=== PATIENT | female | born 1965 | race Caucasian/White ===

== ENCOUNTER → 2016-12-03 | Day surgery (SDC) | payer BC ==
[2016-11-24 10:05] VITALS: Ht 151.1 cm; Wt 77.3 kg
--- NOTE | 2016-12-02 09:12 | History and Physical: Surg Cnt ---
History & Physical Date Dec 02, 2016. Chief Complaint hoarseness History of Present Illness The patient is a 51 year old female with complaints of persistent hoarseness Additional History Hepatic Disease: No Endocrine Disorder: No Kidney Disease: No Hypertension: No Heart Disease: No Bleeding Tendencies: No Infectious Diseases: No Allergies Coded Allergies: Penicillins (Verified Allergy, Unknown, HIVES, 11/24/16) Morphine (Verified Adverse Reaction, Mild, N&V, 11/24/16) Home Medications Scheduled Esomeprazole Magnesium (Nexium), 20 MG PO QAM Linaclotide (Linzess), 1 CAP PO QAM Lorazepam (Ativan), 0.5 MG PO HS Mometasone Furoate-Formoterol (Dulera 100/5 Mcg), 1 AER INH BID Montelukast Sodium (Singulair), 10 MG PO HS Omeprazole (Prilosec), 20 MG PO HS Oxycodone Hcl (Oxycontin), 20 MG PO Q12 Scheduled PRN Albuterol Sulf (Proventil 0.083% 2.5MG/3ML), 2.5 MG INH QID PRN for Shortness of Breath Albuterol Sulfate (Proair Hfa), 2 PUFFS INH Q4H PRN for Wheezing Physical Examination Skin: warm/dry, no rash Eyes: normal inspection, EOMI, sclerae normal ENT: normal ENT inspection, pharynx normal, + pertinent finding (vocal cord polyps, leukoplakia) Head: normocephalic, atraumatic Neck: supple, no adenopathy, trachea midline Respiratory/Chest: lungs clear, normal breath sounds, no respiratory distress Cardiovascular: regular rate, rhythm, no edema, no murmur Abdomen / GI: normal bowel sounds, non tender Back: normal inspection Extremities: normal inspection, normal range of motion Neurologic/Psych: no motor/sensory deficits, alert, normal reflexes, oriented x 3 Diagnosis vocal cord polyps Plan of Treatment direct laryngoscopy, excision vocal cord polyps
[~2016-12-03] VITALS: Ht 151.1 cm; Wt 77.3 kg
[~2016-12-03] MED LIST: ALBINS/ INH; ALBU1AER9 INH; ALBUTEROL 0.083% NEBU SOLN 3 ML VIAL INH PRN; ALBUTEROL HFA INHALER 8.5 GM INH ONE; ATROPINE SULFATE 0.1 MG/ML 5ML SYR IV PRN; DEXAMETHASONE SOD INJ 4 MG/ML VIAL ONE; ESOM20CA PO; EpHEDrine SULFATE INJ 50 MG/ML AMP IV PRN; EpINEphrine INJ 1MG/ML AMP 1 MG/ML AMP ONE; FENTANYL CITRATE INJ 50 MCG/1 ML 2 ML VIAL IV PRN; FENTANYL CITRATE INJ 50 MCG/1 ML 2 ML VIAL ONE; FLUMAZENIL 0.1 MG/1 ML 10 ML VIAL IV PRN; GLYCOPYRROLATE INJ 0.2 MG/ML VIAL ONE; IBUPROFEN 600 MG TAB PO PRN; LABETALOL HCL IV 5 MG/ML 20ML IV PRN; LACTATED RINGER'S 1000ML 1,000 ML IV SCH; LIDOCAINE 2% 20 MG/ML 5ML SYR ONE; LINA1CAP2 PO; LORA-741 PO; MIDAZOLAM HCL 1 MG/ML 2ML VIAL ONE; MOME100A INH; MONT1TAB3 PO; NALOXONE HCL 0.4 MG/1 ML VIAL/CARP IV PRN; NEOSTIGMINE METHYLSULFATE 5 MG/5 ML SYR ONE; ONDANSETRON INJ 2 MG/ML 2 ML VIAL IV PRN; ONDANSETRON INJ 2 MG/ML 2 ML VIAL ONE; OXYC20TA50 PO; OXYCODONE/ACETAMINOPHEN 5-325 TAB PO PRN; PRLSR20 PO; PROMETHAZINE HCL INJ 12.5 MG in SODIUM CHLORIDE 0.9% 50ML 50 ML IV PRN; PROPOFOL IV EMULSION 10 MG/ML 20 ML VIAL IV ONE; SODIUM CHLORIDE 0.9% 1000ML 1,000 ML IV SCH
--- NOTE | 2016-12-03 07:13 | History & Physical Bridge Note ---
H&P Re-Evaluation Bridge Note: I have examined the patient, reviewed the History & Physical and in the interval since the performance of the History & Physical I have noted the following changes of clinical significance: No changes noted
--- NOTE | 2016-12-03 07:16 | Discharge Instructions-SurgCtr ---
Discharge Instructions Visit Reason for Visit: Vocal Cord Polyp Discharge Discharge Diagnosis / Problem: same Discharge Goals Goal(s): Diagnostic testing Activity Recommendations Activity Limitations: resume your previous activity no smoking, rest voice Anesthesia . Post Anesthesia Instructions: If you have had General Anesthesia or IV Sedation: * Do not drive today. * Resume driving when surgeon permits. * Do not make important decisions or sign legal documents today. * Call surgeon for: 1. Temperature elevations greater than 101 degrees F. 2. Uncontrollable pain. 3. Excessive bleeding. 4. Persistent nausea and vomiting. 5. Medication intolerance (nausea, vomiting or rash). * For nausea and vomiting use only clear liquids such as: tea, soda, bouillon until nausea subsides, then gradually increase diet as tolerated. * If you have any concerns or questions, call your surgeon's office. If physician is unavailable and it is an emergency, call 911 or go to the nearest emergency room. . Diet Recommendations Home Diet: no limitations Pending Studies Studies pending at discharge: no Medical Emergencies . Who to Call and When: Medical Emergencies: If at any time you feel your situation is an emergency, please call 911 immediately. . Non-Emergent Contact Non-Emergency issues call your: Primary Care Provider . . "Provider Documentation" section prepared by Josie Wick. [facility] Monitoring Program Search Results: no issues identified
[2016-12-03 09:08] VITALS: BP 105/68; PULSE 67; TEMP 37.2; O2SAT 92
--- NOTE | 2016-12-03 09:20 | Anesthesia Progress Nt - [facility] ---
Anesthesia Post Op Note Date & Time Dec 03, 2016 at 09:20 Vital Signs Pain Intensity: 0 Vital Signs Past 12 Hours Date Time Temp Pulse Resp B/P Pulse Ox O2 Delivery O2 Flow Rate FiO2 12/03/16 09:08 37.2 67 105/68 92 Room Air 12/03/16 08:44 36.4 106/87 12/03/16 08:43 66 24 95 12/03/16 08:43 67 21 96 12/03/16 08:39 117/55 12/03/16 08:33 68 15 117/71 98 12/03/16 08:33 68 15 12/03/16 08:28 90 16 100 12/03/16 08:28 83 16 98 12/03/16 08:23 125/68 12/03/16 08:18 67 14 12/03/16 08:18 68 14 97 12/03/16 08:13 75 16 96 12/03/16 08:13 79 16 98 12/03/16 08:08 118/81 12/03/16 08:03 68 19 97 12/03/16 08:03 70 19 12/03/16 08:02 87/68 12/03/16 07:58 76 18 12/03/16 07:58 76 18 91 12/03/16 07:53 36.3 75 16 133/91 99 Humidified Oxygen 6 Mask 12/03/16 06:36 36.7 80 20 140/99 95 Room Air Notes Mental Status: alert / awake / arousable, participated in evaluation Pt Amnestic to Procedure: Yes Nausea / Vomiting: adequately controlled Pain: adequately controlled Airway Patency, RR, SpO2: stable & adequate BP & HR: stable & adequate Hydration State: stable & adequate Anesthetic Complications: no major complications apparent
--- NOTE | 2016-12-03 11:42 | OPERATIVE REPORT ---
DATE OF OPERATION: 12/03/2016 PREOPERATIVE DIAGNOSIS: Bilateral vocal cord polyps with leukoplakia. POSTOPERATIVE DIAGNOSIS: Same. PROCEDURE: Direct laryngoscopy with microscopic excision of bilateral vocal cord polyps. SURGEON: Dr. Wick. ANESTHESIA: General endotracheal. COMPLICATIONS: None. BLOOD LOSS: 2 mL HISTORY OF PRESENT ILLNESS: A 51-year-old lady with persistent hoarseness. 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 Above procedure felt to be indicated. DESCRIPTION OF PROCEDURE: The patient brought to operating room, placed in supine position. General endotracheal anesthesia was induced, prepped, draped in usual sterile manner. The Dedo laryngoscope was used. The epiglottis was sharp. Vallecula and piriform sinus areas were normal. The endolarynx was inspected. Suspension and microlaryngoscopy was performed with the 400 mm lens. The vocal cords had leukoplakia on the left side and polypoid change on the right side. Both vocal cords were visualized and then the right true vocal cord polyp was excised using the upbiting cup forceps and upbiting scissors and then the straight cup forceps and straight scissors to excise the polyp preserving the mucosa at the leading edge of the vocal cord. The left vocal cord polypectomy was performed in a similar manner. The mucosa at the anterior commissure on both sides were preserved and the hemostasis controlled using topical epinephrine injected. The patient tolerated the procedure well and was taken to recovery area in satisfactory condition. I attest to the content of the Intraoperative Record and any orders documented therein. Any exceptions are noted below. MTDD
== END | disposition home or self-care (01) ==
LOC: X.SURG 06:27
PROVIDERS: ATTEND Otolaryngology
DX: J38.1 Polyp of vocal cord and larynx (principal); J38.3 Other diseases of vocal cords; R49.0 Dysphonia

== ENCOUNTER → 2017-01-29 | Outpatient (CLI) | payer BC ==
[~2017-01-29] MED LIST changes: -ALBUTEROL 0.083% NEBU SOLN 3 ML VIAL INH PRN; -ALBUTEROL HFA INHALER 8.5 GM INH ONE; -ATROPINE SULFATE 0.1 MG/ML 5ML SYR IV PRN; -DEXAMETHASONE SOD INJ 4 MG/ML VIAL ONE; -EpHEDrine SULFATE INJ 50 MG/ML AMP IV PRN; -EpINEphrine INJ 1MG/ML AMP 1 MG/ML AMP ONE; -FENTANYL CITRATE INJ 50 MCG/1 ML 2 ML VIAL IV PRN; -FENTANYL CITRATE INJ 50 MCG/1 ML 2 ML VIAL ONE; -FLUMAZENIL 0.1 MG/1 ML 10 ML VIAL IV PRN; -GLYCOPYRROLATE INJ 0.2 MG/ML VIAL ONE; -IBUPROFEN 600 MG TAB PO PRN; -LABETALOL HCL IV 5 MG/ML 20ML IV PRN; -LACTATED RINGER'S 1000ML 1,000 ML IV SCH; -LIDOCAINE 2% 20 MG/ML 5ML SYR ONE; -MIDAZOLAM HCL 1 MG/ML 2ML VIAL ONE; -NALOXONE HCL 0.4 MG/1 ML VIAL/CARP IV PRN; -NEOSTIGMINE METHYLSULFATE 5 MG/5 ML SYR ONE; -ONDANSETRON INJ 2 MG/ML 2 ML VIAL IV PRN; -ONDANSETRON INJ 2 MG/ML 2 ML VIAL ONE; -OXYCODONE/ACETAMINOPHEN 5-325 TAB PO PRN; -PROMETHAZINE HCL INJ 12.5 MG in SODIUM CHLORIDE 0.9% 50ML 50 ML IV PRN; -PROPOFOL IV EMULSION 10 MG/ML 20 ML VIAL IV ONE; -SODIUM CHLORIDE 0.9% 1000ML 1,000 ML IV SCH
--- NOTE | 2017-01-29 09:59 | DIAGNOSTIC IMAGING REPORT ---
LEFT SCAPULA COMPLETE CLINICAL HISTORY: Chronic left scapula pain. Remote trauma history. COMPARISON: None FINDINGS: Alignment of the left acromioclavicular and glenohumeral joints is anatomic. There is mild AC joint arthritis. No acute fracture is identified within the left scapula by radiography. IMPRESSION: 1. No acute fracture of the left scapula. 2. Mild left AC joint osteoarthritis. Electronically signed by: Jose Alejandro Givens M.D. 01/29/2017 9:57 AM Dictated Date/Time: 01/29/2017 9:56 AM
--- NOTE | 2017-01-29 10:38 | DIAGNOSTIC IMAGING REPORT ---
CERVICAL SPINE 4 OR 5 VIEWS CLINICAL HISTORY: Neck and left scapula pain. History of fusion COMPARISON STUDY: Cervical spine radiographs January 29, 2006. FINDINGS: There are postsurgical findings consistent with a C6-C7 anterior discectomy and fusion. Hardware is intact. Alignment is anatomic. Vertebral body heights are maintained. There is no fracture or suspicious lesion. There is mild osteophytosis at the C5-C6 level. Minimal osteophytosis is noted at several additional levels. Bony neural foramen are intact. IMPRESSION: 1. Stable postoperative findings consistent with a C6-C7 anterior discectomy and fusion. 2. Minimal disc space narrowing with osteophytosis at C5-C6. Electronically signed by: Jose Alejandro Givens M.D. 01/29/2017 10:35 AM Dictated Date/Time: 01/29/2017 10:34 AM
== END | disposition home or self-care (01) ==
LOC: C.RDSM 09:34
PROVIDERS: ATTEND Physician Assistant
DX: M19.012 Primary osteoarthritis, left shoulder (principal); M48.02 Spinal stenosis, cervical region

== ENCOUNTER → 2017-06-18 | Outpatient (CLI) | payer BC | END | disposition home or self-care (01) | LOC: C.LABSPEC 16:44 | PROVIDERS: ATTEND Podiatrist Foot & Ankle Surgery | DX: L60.0 Ingrowing nail (principal) ==

== ENCOUNTER → 2017-10-27 | Day surgery (SDC) | payer OTHER ==
[2017-10-26 09:19] VITALS: BMI 35.0
[~2017-10-27] VITALS: Ht 149.9 cm; Wt 80.0 kg
[~2017-10-27] MED LIST changes: -ALBU1AER9 INH; +ALBUT/IPRATROP 3MG/0.5MG NEB 3 ML VIAL INH STA; +CYCL10TA6 PO; -ESOM20CA PO; +LIDOCAINE HCL 2% 2 ML VIAL (20MG/ML) ONE; +MIDAZOLAM HCL 1 MG/ML 2ML VIAL ONE; +NXM/40 PO; +ONDANSETRON INJ 2 MG/ML 2 ML VIAL ONE; +OXYC-106 PO; -OXYC20TA50 PO; -PRLSR20 PO; +PROPOFOL IV EMULSION 10 MG/ML 20 ML VIAL IV ONE; +VNTHFA/IN INH; +ZNTT/150 PO
[2017-10-27 12:57] VITALS: Ht 149.9 cm; Wt 80.0 kg
[2017-10-27 13:03] VITALS: TEMP 37
--- NOTE | 2017-10-27 13:06 | Endo History and Physical ---
History & Physical Date of Service: Oct 27, 2017. Chief Complaint: GERD Referring Physician: Dr. Marina History of Present Illness 52 yo CF who presents for EGD secondary to GERD with worsening symptoms. 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) Hx Thoracic Surgery: No Hx Orthopedic: Yes (CERVICAL FUSION C6-7 (FAIR ROM)) Hx Urinary Tract Surgery: Yes (BLADDER TACK) Family History Colon CA Social History Smoking Status: Current Every Day Smoker Hx Substance Use: Yes (SEE MED REC) Hx Alcohol Use: Yes (RARELY) Allergies Coded Allergies: Penicillins (Verified Allergy, Unknown, HIVES, 10/27/17) Morphine (Verified Adverse Reaction, Mild, N&V, 10/27/17) Current Medications Reported Home Medications Medications Dose Route/Sig Max Daily Dose Days Date Category Flexeril (Cyclobenzaprine Hcl) 10 Mg Tab 10 Mg PO HS 10/26/17 Reported Percocet 10MG/325MG (Oxycodone/Acetaminophen) Tab 1 Tab PO Q8-10H PRN 10/26/17 Reported Zantac (Ranitidine HCl) 150 Mg Tab 150 Mg PO BID 10/26/17 Reported Ventolin Hfa (Albuterol) 200 Puffs/61952 Mcg Aers 2 Puffs INH Q6H PRN 10/26/17 Reported Nexium (Esomeprazole Magnesium) 40 Mg Cap 40 Mg PO QAM 10/26/17 Reported Singulair (Montelukast Sodium) 10 Mg Tab 10 Mg PO HS 11/24/16 Reported Proventil 0.083% 2.5MG/3ML (Albuterol Sulf) 2.5 Mg/3 Ml Nebu 2.5 Mg INH QID PRN 11/24/16 Reported Ativan (Lorazepam) 0.5 Mg Tab 0.5 Mg PO HS 11/24/16 Reported Linzess (Linaclotide) 290 Mcg Cap 1 Cap PO QAM 11/24/16 Reported Dulera 100/5 Mcg (Mometasone Furoate-Formoterol) 1 Aer Aer 1 Aer INH BID 02/27/15 Reported Vital Signs Weight (Kilograms): 80.00 Height (Feet): 4 Height (Inches): 11 Physical Exam General Appearance: WD/WN, no apparent distress Respiratory/Chest: Auscultation: breath sounds normal Cardiovascular: Heart Auscultation: RRR Abdomen: Bowel Sounds: normal Inspection & Palpation: soft, non-distended, no tenderness, guarding & rebound Assessment and Plan Assessment: 52 yo CF who presents for EGD secondary to GERD with worsening symptoms. Plan: Proceed with EGD.
[2017-10-27 13:16] VITALS: PULSE 82; O2SAT 98
--- NOTE | 2017-10-27 13:45 | GI REPORT ---
Procedure Date: 10/27/2017 1:22 PM Procedure: Upper GI endoscopy Indications: Gastro-esophageal reflux disease Medicines: Monitored Anesthesia Care Complications: No immediate complications. Estimated Blood Loss: Estimated blood loss: none. Procedure: Pre-Anesthesia Assessment: - Prior to the procedure, a History and Physical was performed, and patient medications and allergies were reviewed. The patient's tolerance of previous anesthesia was also reviewed. The risks and benefits of the procedure and the sedation options and risks were discussed with the patient. All questions were answered, and informed consent was obtained. Prior Anticoagulants: The patient has taken no previous anticoagulant or antiplatelet agents. ASA Grade Assessment: III - A patient with severe systemic disease. After reviewing the risks and benefits, the patient was deemed in satisfactory condition to undergo the procedure. After obtaining informed consent, the endoscope was passed under direct vision. Throughout the procedure, the patient's blood pressure, pulse, and oxygen saturations were monitored continuously. The scope was introduced through the mouth, and advanced to the second part of duodenum. The upper GI endoscopy was accomplished without difficulty. The patient tolerated the procedure well. Findings: Moderately severe esophagitis with no bleeding was found. A medium-sized hiatal hernia was present. The examined duodenum was normal. Impression: - Moderately severe reflux esophagitis. - Medium-sized hiatal hernia. - Normal examined duodenum. - No specimens collected. Recommendation: - Resume previous diet. - Continue present medications. - Decrease intake of coffee, as this may worsen symptoms of GERD. - Followup with PCP to discuss smoking cessation, as smoking can worsen symptoms of GERD. - Return to GI office as previously scheduled. - Refer to a surgeon at appointment to be scheduled. Carlos Tatum, 10/27/2017 1:44:40 PM This report has been signed electronically. Note Initiated On: 10/27/2017 1:22 PM I attest to the content of the Intraoperative Record and orders documented therein, exceptions below
--- NOTE | 2017-10-27 14:06 | Anesthesiology Progress Note ---
Anesthesia Post Op Note Date & Time Oct 27, 2017 at 14:06 Vital Signs Pain Intensity: 0 Vital Signs Past 12 Hours Date Time Temp Pulse Resp B/P (MAP) Pulse Ox O2 Delivery O2 Flow Rate FiO2 10/27/17 13:59 92 18 111/77 (88) 93 Room Air 10/27/17 13:44 105 16 140/79 (99) 93 Room Air 10/27/17 13:16 82 16 98 Room Air 10/27/17 13:03 37 82 18 116/81 (93) 96 Room Air Notes Mental Status: alert / awake / arousable, participated in evaluation Pt Amnestic to Procedure: Yes Nausea / Vomiting: adequately controlled Pain: adequately controlled Airway Patency, RR, SpO2: stable & adequate BP & HR: stable & adequate Hydration State: stable & adequate Anesthetic Complications: no major complications apparent Doing well. O2 sats improved after deep coughs. VSS.
[2017-10-27 14:14] VITALS: BP 108/74; PULSE 84; O2SAT 97
--- NOTE | 2017-10-27 14:32 | Discharge Instructions ---
Endoscopy Patient Instructions Date / Procedure(s) Performed Oct 27, 2017. EGD Allergy Information Coded Allergies: Penicillins (Verified Allergy, Unknown, HIVES, 10/27/17) Morphine (Verified Adverse Reaction, Mild, N&V, 10/27/17) Discharge Date / Findings Oct 27, 2017. Hiatal hernia Reflux esophagitis Medication Instructions OK to resume all medications today as prescribed Reported Home Medications Medications Dose Route/Sig Max Daily Dose Days Date Category Flexeril (Cyclobenzaprine Hcl) 10 Mg Tab 10 Mg PO HS 10/26/17 Reported Percocet 10MG/325MG (Oxycodone/Acetaminophen) Tab 1 Tab PO Q8-10H PRN 10/26/17 Reported Zantac (Ranitidine HCl) 150 Mg Tab 150 Mg PO BID 10/26/17 Reported Ventolin Hfa (Albuterol) 200 Puffs/85645 Mcg Aers 2 Puffs INH Q6H PRN 10/26/17 Reported Nexium (Esomeprazole Magnesium) 40 Mg Cap 40 Mg PO QAM 10/26/17 Reported Singulair (Montelukast Sodium) 10 Mg Tab 10 Mg PO HS 11/24/16 Reported Proventil 0.083% 2.5MG/3ML (Albuterol Sulf) 2.5 Mg/3 Ml Nebu 2.5 Mg INH QID PRN 11/24/16 Reported Ativan (Lorazepam) 0.5 Mg Tab 0.5 Mg PO HS 11/24/16 Reported Linzess (Linaclotide) 290 Mcg Cap 1 Cap PO QAM 11/24/16 Reported Dulera 100/5 Mcg (Mometasone Furoate-Formoterol) 1 Aer Aer 1 Aer INH BID 02/27/15 Reported Provider Instructions Activity Restrictions - No exercising or heavy lifting for 24 hours. - Do not drink alcohol the day of the procedure. - Do not drive a car or operate machinery until the day after the procedure. - Do not make any important decisions or sign important papers in 24 hours after the procedure. Following Day: - Return to full activity which may include returning to work/school. Diet Start your diet with liquids and light foods (jello, soup, juice, toast). Then eat your usual diet if not nauseated. Treatment For Common After Affects For mild abdominal pain, bloating, or excessive gas: - Rest - Eat lightly - Lie on right side Follow-Up Information Follow-up with DR BELTRAN as scheduled Anesthesia Information What You Should Know You have had a procedure that required some medicine to reduce anxiety and discomfort. This treatment is called moderate sedation. After receiving the treatment, you may be sleepy, but you will be able to breathe on your own. The effects of the treatment may last for several hours. Follow these instructions along with Activity/Diet recommendations noted above: * Do NOT do anything where dizziness or clumsiness would be dangerous. * Rest quietly at home today, then you can be up and about tomorrow. * Have a responsible person stay with you the rest of today. * You may have had an I.V. today. If so, you may take the dressing off later today. Recommendations Call your doctor if: * Trouble breathing * Continuous vomiting for more than 24 hours * Temperature above 101 degrees * Severe abdominal pain or bloating * Pain not relieved by pain medicine ordered * There is increased drainage or redness from any incision * A large amount of rectal bleeding greater than 2-3 tablespoons. (If you had a polyp/s removed or have hemorrhoids, a small amount of blood - from the rectum is to be expected.) * You have any unanswered questions or concerns. IN THE EVENT OF A SERIOUS EMERGENCY, GO TO THE NEAREST EMERGENCY ROOM Your discharge instructions were prepared by provider Carlos Tatum. Patient Instructions Signature Page Kecia Caro Patient (or Guardian) Signature/Date: I have read and understand the instructions given to me by my caregivers. Caregiver/RN/Doctor Signature/Date: The above-named patient and/or guardian has received patient instructions on this date. + Original Patient Signature Page (only) stays with chart. Please make copy for patient.
== END | disposition home or self-care (01) ==
LOC: C.GI 12:40
PROVIDERS: ATTEND Internal Medicine
DX: K21.0 Gastro-esophageal reflux disease with esophagitis (principal); K44.9 Diaphragmatic hernia without obstruction or gangrene; J44.9 Chronic obstructive pulmonary disease, unspecified; F32.9 Major depressive disorder, single episode, unspecified; F17.200 Nicotine dependence, unspecified, uncomplicated; Z90.710 Acquired absence of both cervix and uterus; Z90.722 Acquired absence of ovaries, bilateral; Z90.79 Acquired absence of other genital organ(s); Z90.49 Acquired absence of other specified parts of digestive tract; Z98.1 Arthrodesis status; Z80.0 Family history of malignant neoplasm of digestive organs

== ENCOUNTER → 2017-11-10 | Outpatient (CLI) | payer OTHER ==
[~2017-11-10] MED LIST changes: -ALBUT/IPRATROP 3MG/0.5MG NEB 3 ML VIAL INH STA; -LIDOCAINE HCL 2% 2 ML VIAL (20MG/ML) ONE; -MIDAZOLAM HCL 1 MG/ML 2ML VIAL ONE; -ONDANSETRON INJ 2 MG/ML 2 ML VIAL ONE; -PROPOFOL IV EMULSION 10 MG/ML 20 ML VIAL IV ONE
--- NOTE | 2017-11-10 12:51 | DIAGNOSTIC IMAGING REPORT ---
Nuclear gastric emptying study: CLINICAL HISTORY: Acid reflux disease. Vomiting. COMPARISON STUDY: None. TECHNIQUE: Following the oral administration of 1.089 mCi of technetium 99m sulfur colloid in egg sandwich and 8 ounces of water, static abdominal images were obtained anteriorly and posteriorly at 0 minutes, 1 hour, 2 hour, and 4 hour time intervals. Gastric emptying was calculated utilizing the geometric mean method. FINDINGS: There is approximately 69% gastric activity remaining at the 1 hour time interval (normal is less than 90%), 34% at the 2 hour time interval (normal is less than 60%), and 1% remaining at the 4 hour time interval (normal is less than 10%). IMPRESSION: No evidence of delayed gastric emptying. Electronically signed by: Jose Alejandro Givens M.D. 11/10/2017 12:49 PM Dictated Date/Time: 11/10/2017 12:49 PM
== END | disposition home or self-care (01) ==
LOC: C.NUCL 06:43
PROVIDERS: ATTEND Registered Nurse
DX: K21.9 Gastro-esophageal reflux disease without esophagitis (principal); R14.2 Eructation; R11.10 Vomiting, unspecified

== ENCOUNTER → 2017-11-15 | Outpatient (CLI) | payer OTHER ==
[~2017-11-15] MED LIST changes: +IBUP-1050 PO; +IPRASOL4 INH; +NARCAN INJ
--- NOTE | 2017-11-15 08:50 | DIAGNOSTIC IMAGING REPORT ---
(BARIUM SWALLOW) ESOPHAGUS CLINICAL HISTORY: K21.9 Acid reflux [id number] Hiatal [id number]. Preop surgery for hiatal hernia. COMPARISON STUDY: None. FLUOROSCOPY TIME: 1.5 minutes.. FINDINGS: 21 images submitted. The patient swallowed barium without difficulty. Anterior cervical discectomy and fusion within the cervical spine. The esophagus is normal in course and caliber. The contours of the hypopharynx are within normal limits. Small hiatus hernia. Mild esophageal motility. No gastroesophageal reflux. The barium tablet passed without difficulty. IMPRESSION: 1. Small hiatus hernia. 2. No gastroesophageal reflux. Electronically signed by: Ankur Rodriguez M.D. 11/15/2017 8:49 AM Dictated Date/Time: 11/15/2017 8:46 AM
== END | disposition home or self-care (01) ==
LOC: C.RAD 07:56
PROVIDERS: ATTEND Surgery
DX: K21.9 Gastro-esophageal reflux disease without esophagitis (principal); K44.9 Diaphragmatic hernia without obstruction or gangrene

== ENCOUNTER 2017-12-01 05:37 | Observation (INO) | payer OTHER ==
[2017-11-15 09:13] VITALS: Ht 151.1 cm; Wt 81.6 kg
--- NOTE | 2017-11-15 09:48 | PAT Medication Instructions ---
Service Date Nov 15, 2017. Current Home Medication List Albuterol Hfa (Ventolin Hfa), 2 PUFFS INH Q6H PRN for Shortness of Breath Albuterol Sulf (Proventil 0.083% 2.5MG/3ML), 2.5 MG INH QID PRN for Shortness of Breath Cyclobenzaprine Hcl (Flexeril), 10 MG PO HS PRN for PRN Esomeprazole Magnesium (Nexium), 40 MG PO QAM Ibuprofen (Advil), 400 MG PO PRN Ipratropium-Albuterol (Duoneb), 1 TREATMENT INH Q4H PRN for PRN Linaclotide (Linzess), 1 CAP PO QAM Lorazepam (Ativan), 0.5 MG PO HS Mometasone Furoate-Formoterol (Dulera 100/5 Mcg), 1 AER INH BID Montelukast Sodium (Singulair), 10 MG PO QAM Oxycodone/Acetaminophen 10MG/325MG (Percocet 10MG/325MG), 1 TAB PO Q8-10H PRN for Pain Ranitidine (Zantac), 150 MG PO BID [Narcan], 1 DOSE INJ PRN Medication Instructions For Your Scheduled Surgery - Use as directed if needed (patient has not used before): [Narcan], 1 DOSE INJ PRN - Check with surgeon for instructions: Ibuprofen (Advil), 400 MG PO PRN - Hold the following medications the morning of surgery: Cyclobenzaprine Hcl (Flexeril), 10 MG PO HS PRN for PRN Linaclotide (Linzess), 1 CAP PO QAM Montelukast Sodium (Singulair), 10 MG PO QAM Ranitidine (Zantac), 150 MG PO BID - Take the following medications the morning of surgery with a sip of water: Oxycodone/Acetaminophen 10MG/325MG (Percocet 10MG/325MG), 1 TAB PO Q8-10H PRN for Pain (OKAY TO TAKE UP TO 4 HOURS PRIOR TO SURGERY IF NEEDED) Mometasone Furoate-Formoterol (Dulera 100/5 Mcg), 1 AER INH BID Ipratropium-Albuterol (Duoneb), 1 TREATMENT INH Q4H PRN for PRN (if needed) Esomeprazole Magnesium (Nexium), 40 MG PO QAM Albuterol Hfa (Ventolin Hfa), 2 PUFFS INH Q6H PRN for Shortness of Breath (if needed) Albuterol Sulf (Proventil 0.083% 2.5MG/3ML), 2.5 MG INH QID PRN for Shortness of Breath (if needed) - Take the following medications as scheduled the night before surgery: Ranitidine (Zantac), 150 MG PO BID Oxycodone/Acetaminophen 10MG/325MG (Percocet 10MG/325MG), 1 TAB PO Q8-10H PRN for Pain (if needed) Mometasone Furoate-Formoterol (Dulera 100/5 Mcg), 1 AER INH BID Lorazepam (Ativan), 0.5 MG PO HS Ipratropium-Albuterol (Duoneb), 1 TREATMENT INH Q4H PRN for PRN (if needed) Albuterol Hfa (Ventolin Hfa), 2 PUFFS INH Q6H PRN for Shortness of Breath (if needed) Albuterol Sulf (Proventil 0.083% 2.5MG/3ML), 2.5 MG INH QID PRN for Shortness of Breath (if needed) Cyclobenzaprine Hcl (Flexeril), 10 MG PO HS PRN for PRN (if needed) If you have any questions please call us at [phone] or [phone] or [phone]
[2017-11-15 10:06] LABS: BASO % 0.6 %; BASO ABS # 0.03 K/uL (0-0.2); EOS % 4.2 %; HEMATOCRIT 42.4 % (37-47); HEMOGLOBIN 14.8 g/dL (12.0-16.0); IG# 0.01 K/uL (0.00-0.02); LYMPH % 32.4 %; LYMPH ABS # 1.55 K/uL (1.2-3.4); MEAN CORPUSCULAR HEMOGLOBIN 31.8 pg (25-34); MEAN CORPUSCULAR HGB CONC 34.9 g/dl (32-36); MEAN PLATELET VOLUME 9.5 fL (7.4-10.4); MONO % 6.7 %; MONO ABS # 0.32 K/uL (0.11-0.59); NEUT % 55.9 %; NEUT ABS # 2.67 K/uL (1.4-6.5); PLATELET COUNT 208 K/uL (130-400); RED CELL DISTRIBUTION WIDTH CV 12.9 % (11.5-14.5); RED CELL DISTRIBUTION WIDTH SD 42.6 fL (36.4-46.3); WHITE BLOOD COUNT 4.78 K/uL (4.8-10.8)
[2017-11-15 11:32] LABS: CALCIUM 9.1 mg/dl (8.5-10.1); CREATININE 0.73 mg/dl (0.60-1.20); POTASSIUM 4.4 mmol/L (3.5-5.1)
[2017-12-01] VITALS (7 sets, daily range): BP systolic 98–131; BP diastolic 65–95; PULSE 68–93; TEMP 36.3–37.4; O2SAT 92–97
[~2017-12-01] VITALS: Ht 151.1 cm; Wt 81.6 kg
[~2017-12-01 05:37] MED LIST changes: +DOXY100C76 PO
[2017-12-01] MEDS ORDERED: LACTATED RINGER'S 1000ML 1,000 ML IV SCH (06:00)
[2017-12-01] MEDS ORDERED: prednisone taper (06:06)
[2017-12-01] MEDS ORDERED: ONDANSETRON INJ 2 MG/ML 2 ML VIAL ONE (06:42)
[2017-12-01] MEDS ORDERED: NEOSTIGMINE METHYLSULFATE 5 MG/5 ML SYR ONE (06:42)
[2017-12-01] MEDS ORDERED: FENTANYL CITRATE INJ 50 MCG/1 ML 2 ML VIAL ONE ×4 (06:42→11:49)
[2017-12-01] MEDS ORDERED: PROPOFOL IV EMULSION 10 MG/ML 20 ML VIAL IV ONE (06:42)
[2017-12-01] MEDS ORDERED: LIDOCAINE HCL 2% 2 ML VIAL (20MG/ML) ONE (06:42)
[2017-12-01] MEDS ORDERED: MIDAZOLAM HCL 1 MG/ML 2ML VIAL ONE ×2 (06:42→07:41)
[2017-12-01] MEDS ORDERED: DEXAMETHASONE SOD INJ 4 MG/ML VIAL ONE (06:42)
[2017-12-01] MEDS ORDERED: GLYCOPYRROLATE INJ 0.2 MG/ML VIAL ONE ×2 (06:42→12:17)
[2017-12-01] MEDS ORDERED: CLINDAMYCIN PHOS 150 MG/ML 2 ML VIAL ONE ×2 (08:16→08:19)
[2017-12-01] MEDS ORDERED: SODIUM CHLORIDE 0.9% INJ 10 ML VIAL ONE (08:17)
[2017-12-01] MEDS ORDERED: BUPIVACAINE LIPOSOME 1/3% 266 MG/20 ML VIAL INFIL ONE (08:17)
[2017-12-01] MEDS ORDERED: BUPIVACAINE 0.5 % 5 MG/1 ML MPF 30ML VIAL ONE (08:17)
[2017-12-01] MEDS ORDERED: SODIUM CHLORIDE 0.9% PF 50 ML VIAL ONE (08:17)
[2017-12-01] MEDS ORDERED: HYDROmorphone INJ 2 MG/ML SYR/VIAL ONE (08:22)
[2017-12-01] MEDS ORDERED: SURGICEL ABSORB HEMOSTAT 2IN X 14IN TOP ONE (09:51)
[2017-12-01] MEDS ORDERED: CISATRACURIUM BESYLATE IV SOLN 2 MG/ML 10 ML VIAL ONE (10:47)
[2017-12-01] MEDS ORDERED: PHENYLEPHRINE 100MCG/ML 5ML SYR ONE (10:47)
[2017-12-01] MEDS ORDERED: LABETALOL HCL IV 5 MG/ML 20ML IV ONE (12:03)
[2017-12-01] MEDS ORDERED: SUCCINYLCHOLINE CHLORIDE 20 MG/ML 10 ML VIAL IV ONE (12:07)
--- NOTE | 2017-12-01 12:43 | [facility] Post Operative Brief Note ---
Immediate Operative Summary Operative Date Dec 01, 2017. Pre-Operative Diagnosis Gastroesophageal reflux disease with hiatal hernia. Post-Operative Diagnosis Gastroesophageal reflux disease with hiatal hernia. Procedure(s) Performed Laparoscopic Brigid Fundoplication with use of Zeus Esophagogastroduodenoscopy Surgeon Dr. Villalobos Aircraft Machinist Surgeon(s) Vickey Vasquez, PAC Estimated Blood Loss 25 cc's Findings Consistent with Post-Op Diagnosis Specimens GE junction fat pad Anesthesia Type General
[2017-12-01] MEDS ORDERED: ONDANSETRON INJ 2 MG/ML 2 ML VIAL IV PRN ×2 (13:00→13:15)
[2017-12-01] MEDS ORDERED: ALBUTEROL HFA 8 GM INHALER INH PRN (13:00)
[2017-12-01] MEDS ORDERED: MoRPHine SULFATE 2 MG/ML CARP IV PRN (13:00)
[2017-12-01] MEDS ORDERED: CYCLOBENZAPRINE HCL 10 MG TAB PO PRN (13:00)
[2017-12-01] MEDS ORDERED: FLUMAZENIL 0.1 MG/1 ML 10 ML VIAL IV PRN (13:15)
[2017-12-01] MEDS ORDERED: PROMETHAZINE HCL INJ 12.5 MG in SODIUM CHLORIDE 0.9% 50ML 50 ML IV PRN (13:15)
[2017-12-01] MEDS ORDERED: ALBUTEROL 0.083% NEBU SOLN 3 ML VIAL INH PRN (13:15)
[2017-12-01] MEDS ORDERED: ATROPINE SULFATE 0.1 MG/ML 5ML SYR IV PRN (13:15)
[2017-12-01] MEDS ORDERED: EpHEDrine SULFATE INJ 50 MG/ML AMP IV PRN (13:15)
[2017-12-01] MEDS ORDERED: FENTANYL CITRATE INJ 50 MCG/1 ML 2 ML VIAL IV PRN (13:15)
[2017-12-01] MEDS ORDERED: HYDROmorphone INJ 1 MG/ML SYR IV PRN (13:15)
[2017-12-01] MEDS ORDERED: NALOXONE HCL 0.4 MG/1 ML VIAL/CARP IV PRN (13:15)
[2017-12-01] MEDS ORDERED: LABETALOL HCL IV 5 MG/ML 20ML IV PRN (13:15)
[2017-12-01] MEDS ORDERED: IV FLUIDS COMPLETED PRN (13:45)
--- NOTE | 2017-12-01 14:42 | Anesthesiology Progress Note ---
Anesthesia Post Op Note Date & Time Dec 01, 2017 at 14:42 Vital Signs Pain Intensity: 0 Vital Signs Past 12 Hours Date Time Temp Pulse Resp B/P (MAP) Pulse Ox O2 Delivery O2 Flow Rate FiO2 12/01/17 13:57 65 14 93 12/01/17 13:57 65 14 12/01/17 13:56 135/76 12/01/17 13:52 64 15 93 12/01/17 13:52 63 15 12/01/17 13:50 130/76 12/01/17 13:47 65 17 93 12/01/17 13:47 65 17 12/01/17 13:46 128/99 12/01/17 13:42 76 18 12/01/17 13:42 79 18 90 12/01/17 13:41 132/86 12/01/17 13:38 37.0 16 130/76 (98) 96 Nasal Cannula 10 12/01/17 13:37 74 18 12/01/17 13:37 74 18 96 12/01/17 13:36 74 17 12/01/17 13:36 74 17 138/90 96 12/01/17 13:35 122/92 12/01/17 13:33 148/105 12/01/17 13:32 81 16 12/01/17 13:32 81 16 144/112 94 12/01/17 13:27 75 16 94 12/01/17 13:27 75 16 12/01/17 13:26 152/99 12/01/17 13:25 75 21 93 12/01/17 13:25 75 21 12/01/17 13:21 151/95 12/01/17 13:20 84 16 94 12/01/17 13:20 84 16 12/01/17 13:19 147/100 12/01/17 13:15 74 22 12/01/17 13:15 73 22 87 12/01/17 13:10 87 17 137/104 95 12/01/17 13:10 36.1 86 16 137/104 (116) 95 Oxymask 10 12/01/17 13:10 88 17 12/01/17 06:08 36.7 93 22 121/95 (104) 97 Room Air Notes Mental Status: alert / awake / arousable, participated in evaluation Pt Amnestic to Procedure: Yes Nausea / Vomiting: adequately controlled Pain: adequately controlled Airway Patency, RR, SpO2: stable & adequate BP & HR: stable & adequate Hydration State: stable & adequate Anesthetic Complications: no major complications apparent
--- NOTE | 2017-12-01 15:26 | OPERATIVE REPORT ---
DATE OF OPERATION: 12/01/2017 PREOPERATIVE DIAGNOSES: 1. Gastroesophageal reflux. 2. Hiatal hernia. POSTOPERATIVE DIAGNOSES: Same. PROCEDURES: 1. Robotic-assisted laparoscopic Brigid fundoplication. 2. Post-fundoplication esophagogastroscopy. SURGEON: Dr. Villalobos. SERVICE DESK DIRECTOR: RUTHANN Mares. (Mr. Vasquez was present for the entire case. He was at the bedside while I was at the console. He was instrumental in handling the camera passing instruments and he closed the skin incisions at the conclusion of the case.) ANESTHESIA: General anesthesia with endotracheal intubation. INDICATION FOR PROCEDURE AND FINDINGS: Kecia Caro is a 52-year-old female who has a longstanding history of gastroesophageal reflux disease which has been unresponsive to medical therapy. In addition, she continues to smoke and drink large amounts of coffee, though she states that she has cut back considerably on both of these. I had a long talk in the office with the patient and her . We elected to proceed with a robot-assisted laparoscopic Brigid fundoplication. On 12/01/2017, the patient underwent an uncomplicated Brigid fundoplication via robot. She really did not have much in the way of adhesions. The floppy Brigid came around under no tension. I did use an absorbable mesh to reinforce the diaphragmatic repair. Postoperative esophagogastroscopy revealed good position on the wrap and no evidence of any leakage. PROCEDURE IN DETAIL: The patient was brought to the operating room and laid in supine position. General anesthesia induced and endotracheal intubation was performed. After prepping and draping in usual sterile fashion, a Veress needle was placed a few centimeters above the umbilicus in the midline. Carbon dioxide was then insufflated. Veress needle was removed and the port was placed and it could be seen that we were intraperitoneal and really had very little in the way of any adhesions. A 5 mm scope was placed to the right and the left; the one on the left was for robotic traction with robotic arm, the one on the right was for the Pretzel liver retractor. Two 8 mm ports were placed in about the midclavicular line at the costal margin. The certified pathology assistant port was placed to the right of the umbilicus. The patient was then placed in a marked Trendelenburg position and the robot was positioned and docked. Upon entering, I freed up the lesser curvature and freed up the right johnathan of the diaphragm. I came down around behind this and then turned my attention to the left side. I took down the short gastrics over a portion of the greater curvature, freed it up from its attachments to the splenic area of the diaphragm. I then dissected out my area so that I met the area I dissected out on the right. I identified the left diaphragmatic crura without difficulty. I had freed up enough of the stomach and the lesser curvature, and we could easily get a wrap around this. Two separate 0 silks were used to reapproximate the diaphragmatic crura. I then placed an OviTex Vicryl absorbable mesh. It was a small area but I sutured it to go around the hiatal opening and sutured in place with 2-0 Vicryl sutures. This laid very nicely with no kinks and was not in contact with the esophagus. I then pulled the wrap from posterior to the esophagus. Due to shoeshine maneuver, there was no tension on this. A 0 silk was used to pull the posterior and anterior fundus together around the esophagus. I then placed another 0 silk about a centimeter above this and got a good bite of the esophagus and then at the fundus on the right and then tied this. I then placed another suture into the fundus and esophagus and used 1 last suture to suture the fundus to the diaphragmatic crura anterior. I then undocked the robot. Took the patient out of reverse Trendelenburg and performed an upper endoscopy without difficulty. The esophagus looked normal going down. The wrap did not appear tight. On retroflexion, it appeared that the wrap was in good position. We then suctioned out the air. Endo Close suture with 0 PDS was used to close the two 12 mm ports. 4-0 Monocryl was used in running subcuticular fashion to approximate the wound edges. She tolerated it well, we really had no evidence of bleeding and she had no intraoperative problems. I attest to the content of the Intraoperative Record and any orders documented therein. Any exceptions are noted below. LAURA
[2017-12-01] MEDS ORDERED: HYDROmorphone INJ 0.5 MG/0.5 ML SYR ONE (16:36)
[2017-12-01] MEDS ORDERED: NURSING VERBAL MED ORDER ONE (16:45)
[2017-12-01] MEDS: METOCLOPRAMIDE HCL INJ 5 MG/ML 2 ML VIAL IV. SCH ×2 (16:46→22:02)
[2017-12-01] MEDS: KETOROLAC TROMETHAMINE 15 MG/ML VIAL IV. SCH ×2 (16:47→23:50)
[2017-12-01] MEDS: D5W AND 1/2NSS 1,000 ML IV SCH (16:57)
[2017-12-01] MEDS: OXYCODONE HCL IR 5 MG TAB (IMMEDIATE RELEASE) PO PRN (18:13)
[2017-12-01] MEDS: ACETAMINOPHEN IV 1,000 MG in EMPTY BAG 0 ML IV SCH (18:13)
[2017-12-01] MEDS ORDERED: LORAZEPAM 0.5 MG TAB PO SCH (21:00)
[2017-12-01] MEDS: DOCUSATE SODIUM 100 MG CAP PO SCH (21:54)
[2017-12-01] MEDS: HYDROmorphone INJ 0.5 MG/0.5 ML SYR IV PRN (21:55)
[2017-12-02] MEDS: D5W AND 1/2NSS 1,000 ML IV SCH ×2 (02:22→11:00)
[2017-12-02] MEDS: ACETAMINOPHEN IV 1,000 MG in EMPTY BAG 0 ML IV SCH ×2 (02:23→10:18)
[2017-12-02] MEDS: HYDROmorphone INJ 0.5 MG/0.5 ML SYR IV PRN ×5 (02:38→16:45)
[2017-12-02 03:49] VITALS: BP 107/67; PULSE 83; TEMP 37; O2SAT 91
[2017-12-02] MEDS: METOCLOPRAMIDE HCL INJ 5 MG/ML 2 ML VIAL IV. SCH (05:51)
[2017-12-02 07:19] VITALS: BP 98/64; PULSE 73; TEMP 37; O2SAT 95
--- NOTE | 2017-12-02 08:36 | DIAGNOSTIC IMAGING REPORT ---
(GASTROGRAFIN SWALLOW) ESOPHAGUS CLINICAL HISTORY: timi fundoplication COMPARISON STUDY: 11/15/2017 FLUOROSCOPY TIME: 0.5 minutes. NUMBER OF FLUOROSCOPIC IMAGES: 8 FINDINGS: A postoperative Gastrografin swallow was performed. There are postsurgical changes of a Timi fundoplication. There is no contrast extravasation. Contrast emptied from the esophagus into the stomach. There is no reflux. IMPRESSION: Postsurgical changes of a Timi fundoplication. No complicating features are evident Electronically signed by: Adrian Santos M.D. 12/02/2017 8:35 AM Dictated Date/Time: 12/02/2017 8:32 AM
[2017-12-02] MEDS: DOCUSATE SODIUM 100 MG CAP PO SCH (08:52)
[2017-12-02] MEDS: KETOROLAC TROMETHAMINE 15 MG/ML VIAL IV. SCH ×2 (08:53→15:32)
[2017-12-02] MEDS ORDERED: MONTELUKAST SOD 10 MG TAB PO SCH (09:00)
[2017-12-02] MEDS ORDERED: ENOXAPARIN 40 MG/0.4 ML SYR SQ SCH (09:00)
--- NOTE | 2017-12-02 10:12 | SURGERY PROGRESS NOTE ---
DATE: 12/02/2017 Ms. Caro was seen today on 12/02/2016. She looks very good after her robot-assisted laparoscopic Brigid fundoplication. Her pain is manageable. She is tolerating liquids. She is making good urine. Her vital signs are stable. The only problem I am having with her is that she is requiring oxygen. On 3 liters, she is 95% sats. In listening to her I do not hear evidence of any wheezing or rales. I think that some of this is due to the general anesthesia and some of it is due to the fact that she is not taking deep enough breaths. We stopped her IV. Her abdomen is nice and soft. We are going to have her walk more and I will see her later this afternoon. Hopefully, we can discharge later. Her barium swallow showed no evidence of extravasation or reflux. The wrap appears to be in good position.
[2017-12-02 11:35] VITALS: BP 97/72; PULSE 68; TEMP 37; O2SAT 97
[2017-12-02 13:36] VITALS: O2SAT 92
[2017-12-02] MEDS: OXYCODONE HCL IR 5 MG TAB (IMMEDIATE RELEASE) PO PRN (15:12)
[2017-12-02] MEDS ORDERED: NURSING DECISION MEDICATION ORDER SCH (15:45)
[2017-12-02 15:54] VITALS: BP 119/78; PULSE 88; TEMP 37.1; O2SAT 93
[2017-12-02] MEDS ORDERED: COUGH DROP (SUGAR FREE) LOZ 24 LOZ/1 BOX LOZ PRN (16:00)
--- NOTE | 2017-12-02 16:05 | Discharge Instructions ---
Discharge Instructions Date of Service Dec 02, 2017. Admission Reason for Admission: Hiatal Hernia, Gerd Discharge Discharge Diagnosis / Problem: Hiatal Hernia, Gerd Discharge Goals Goal(s): Decrease discomfort Activity Recommendations Activity Limitations: as noted below 1. Do not lift objects heaver than 10 pounds until cleared to do so by Dr. Villalobos. 2. Do not drive until cleared to do so by Dr. Villalobos. 3. You may shower and clean incisions with soap and water. No tub baths. 4. Maintain a liquid diet until advised otherwise by Griselda Davis. . Current Hospital Diet Patient's current hospital diet: Clear Liquid Diet Discharge Diet Recommended Diet: Clear Liquid Diet Procedures Procedures Performed: Laparoscopic Brigid Fundoplication with use of Davinci, Esophagogastroduodenoscopy Pending Studies Studies pending at discharge: no Medical Emergencies . Who to Call and When: Medical Emergencies: If at any time you feel your situation is an emergency, please call 911 immediately. . Non-Emergent Contact Non-Emergency issues call your: Surgeon Call Non-Emergent contact if: you have a fever, your pain is not controlled, wound has increased drainage . "Provider Documentation" section prepared by Malik Vasquez. . VTE Core Measure Inpt VTE Proph given/why not?: Enoxaparin (Lovenox)SQ
[2017-12-02 16:57] VITALS: BP 119/78; PULSE 88; TEMP 37.1; O2SAT 93
--- NOTE | 2017-12-02 18:42 | DISCHARGE SUMMARY ---
DISCHARGE DIAGNOSIS: Hiatal hernia with refractory gastroesophageal reflux disease. HOSPITAL COURSE: Kecia Caro is a very nice 52-year-old smoker and consumer of large amounts of coffee who has severe symptoms of reflux with a small hiatal hernia. Her symptoms were refractory to medical management. She is referred to me by Dr. Carlos Tatum. She does not appear to have any esophageal dysmotility. We set her up for surgery and on 12/01/17 performed an uncomplicated robot-assisted laparoscopic Brigid fundoplication. I did an upper endoscopy after the repair and it looked quite good. She had an uneventful night, although she was still on oxygen the morning after surgery. We had her ambulating and working on her incentive spirometer and by the afternoon of the first postoperative day, she was off oxygen. She looked quite good actually. Her pain was very well controlled. We discharged her home on postop day 1. I will see her back in the office in 2 weeks. Strict instructions were given for her diet. She is not to have anything beyond clear liquids and broth. We did a barium swallow this morning and the repair looks quite good with no extravasation. She had no evidence of reflux.
== END 2017-12-02 17:25 | disposition home or self-care (01) ==
LOC: C.ACU 05:37 → C.MSN 12:59 → ENRESERV 13:38
PROVIDERS: ADMIT Surgery; ATTEND Surgery
DX: K21.9 Gastro-esophageal reflux disease without esophagitis (principal); K44.9 Diaphragmatic hernia without obstruction or gangrene; J44.9 Chronic obstructive pulmonary disease, unspecified; F32.9 Major depressive disorder, single episode, unspecified; Z90.89 Acquired absence of other organs; Z90.710 Acquired absence of both cervix and uterus; Z80.0 Family history of malignant neoplasm of digestive organs; F17.200 Nicotine dependence, unspecified, uncomplicated; M19.90 Unspecified osteoarthritis, unspecified site; E66.9 Obesity, unspecified; F41.9 Anxiety disorder, unspecified
CPT/HCPCS: 43333; S2900

== ENCOUNTER 2017-12-09 17:52 | Emergency (ER) | payer OTHER ==
[~2017-12-09 17:52] MED LIST changes: -ALBINS/ INH; -DOXY100C76 PO; +RANI150T85 PO; -ZNTT/150 PO; +prednisone taper
== END 2017-12-09 17:59 | disposition left against medical advice (07) ==
LOC: C.EDB 17:53

== ENCOUNTER → 2018-01-31 | Outpatient (CLI) | payer OTHER ==
--- NOTE | 2018-01-31 08:10 | DIAGNOSTIC IMAGING REPORT ---
(BARIUM SWALLOW) ESOPHAGUS CLINICAL HISTORY: R11.2 Nausea and vomiting COMPARISON STUDY: Barium swallow 12/02/2017. FLUOROSCOPY TIME: 0.5 minutes. 23 images submitted.. FINDINGS: The patient swallowed barium without difficulty. The esophagus is normal in course, caliber, and motility. The contours of the hypopharynx are within normal limits. There again noted postoperative changes consistent with Brigid fund location. This accounts for the narrowing at the gastroesophageal junction. No gastroesophageal reflux demonstrated during the examination. No extraluminal contrast to suggest a leak. IMPRESSION: No change compared to the prior study. Postoperative changes consistent with Brigid fundoplication again noted. Electronically signed by: Ankur Rodriguez M.D. 01/31/2018 8:09 AM Dictated Date/Time: 01/31/2018 8:07 AM
== END | disposition home or self-care (01) ==
LOC: C.RAD 07:12
PROVIDERS: ATTEND Surgery
DX: R11.2 Nausea with vomiting, unspecified (principal)